=== PATIENT | female | born 1990 | race Caucasian/White ===

== ENCOUNTER 2017-06-06 16:01 | Emergency (ER) | payer OTHER ==
[2017-06-06 17:00] VITALS: BP 117/77; PULSE 85; RESP 16; TEMP 98.3; O2SAT 99; BMI 24.7
--- NOTE | 2017-06-06 19:57 | C.PDOC ---
History Of Present Illness 27 y/o female presents to the ER complaining of skin growth on the right 4th toe which has been present for 1 year. Patient states that the skin growth has been bothering her for the past several days. Of note, patient has not sought medical attention until now. Chief Complaint (Nursing): Lower Extremity Problem/Injury History Per: Patient History/Exam Limitations: no limitations Onset/Duration Of Symptoms: Days Current Symptoms Are (Timing): Still Present Severity: Moderate Past Medical History Reviewed: Historical Data, Nursing Documentation, Vital Signs Vital Signs: Last Vital Signs Temp 98.3 F 06/06/17 17:00 Pulse 85 06/06/17 17:00 Resp 16 06/06/17 17:00 BP 117/77 06/06/17 17:00 Pulse Ox 99 06/06/17 20:01 - Medical History PMH: Chronic Kidney Disease Other Surgeries: Hx of surgeries Family History: States: No Known Family Hx - Social History Hx Alcohol Use: No Hx Substance Use: No - Immunization History Hx Tetanus Toxoid Vaccination: No Hx Influenza Vaccination: Yes Hx Pneumococcal Vaccination: No Review Of Systems Except As Marked, All Systems Reviewed And Found Negative. Skin: Positive for: Other (skin growth on right 4th toe) Physical Exam - Physical Exam Appears: Non-toxic, No Acute Distress Skin: Normal Color, Warm Head: Atraumatic, Normacephalic Eye(s): bilateral: Normal Inspection Nose: Normal Oral Mucosa: Moist Neck: Supple Chest: Symmetrical Extremity: Normal ROM, Other (hyperkeratotic lesion on the laterl aspect of right 4th toe) Neurological/Psych: Oriented x3, Normal Speech, Normal Motor, Normal Sensation ED Course And Treatment O2 Sat by Pulse Oximetry: 99 (RA) Pulse Ox Interpretation: Normal Progress Note: Patient has been discharged and told to follow up with production metal sprayer this week for re-evaluation. Disposition - Disposition Referrals: Isabella Rodriguez DPM [Staff Provider] - Disposition: HOME/ ROUTINE Disposition Time: 18:00 Condition: GOOD Additional Instructions: Thank you for letting us take care of you today. The emergency medical care you received today was directed at your acute symptoms. If you were prescribed any medication, please fill it and take as directed. It may take several days for your symptoms to resolve. Return to the Emergency Department if your symptoms worsen, do not improve, or if you have any other problems. Please contact your doctor or call one of the physicians/clinics you have been referred to that are listed on the Patient Visit Information form that is included in your discharge packet. Bring any paperwork you were given at discharge with you along with any medications you are taking to your follow up visit. Our treatment cannot replace ongoing medical care by a primary care provider (PCP) outside of the emergency department. Thank you for allowing the [facility] team to be part of your care today. Follow up with the production metal sprayer this week for re-evaluation and further management. Forms: [employer] ([place]ani) - Clinical Impression Clinical Impression: [place] of toe - Scribe Statement The provider has reviewed the documentation as recorded by the Nataliaibswetha Kumar Provider Attestation: All medical record entries made by the Elizabeth were at my direction and personally dictated by me. I have reviewed the chart and agree that the record accurately reflects my personal performance of the history, physical exam, medical decision making, and the department course for this patient. I have also personally directed, reviewed, and agree with the discharge instructions and disposition.
== END 2017-06-06 18:10 | disposition home or self-care (01) ==
LOC: C.ER 16:01
DX: L84 Corns and callosities (principal)